=== PATIENT | male | born 1955 | race Caucasian/White ===

== ENCOUNTER → 2017-02-09 | Outpatient (CLI) | payer BC ==
[~2017-02-09] MED LIST: ATEN100T PO; COU1 PO; OXYC-481 PO; TRAM50TA2 PO; ZIAC10 PO
--- NOTE | 2017-02-09 10:02 | RADRPT ---
PROCEDURE: XR left knee. CLINICAL INDICATION: Knee pain. TECHNIQUE: AP weightbearing, lateral weightbearing and sunrise views are available for review. COMPARISON: 08/02/2016 FINDINGS: There is a total knee replacement. There is no evidence of loosening of the prosthesis. There is no evidence of hardware failure. The osseous structures are normal in mineralization, architecture and alignment No acute fracture or dislocation is seen.No osseous lesions are identified. The soft tiss ues are unremarkable . IMPRESSION: Unremarkable total knee replacement. RPTAT: HGDB .Angelo Valencia MD, MD Date Time Electronically viewed and signed by .Angelo Valencia MD, MD on 02/09/2017 10:02 .B/
== END | disposition home or self-care (01) ==
LOC: HKI 08:50
PROVIDERS: ATTEND Orthopaedic Surgery
DX: Z47.89 Encounter for other orthopedic aftercare (principal); Z96.652 Presence of left artificial knee joint; Z96.642 Presence of left artificial hip joint
CPT/HCPCS: 73562; G0463

== ENCOUNTER 2017-04-15 05:13 | Emergency (ER) | payer BC ==
[~2017-04-15] VITALS: Ht 177.8 cm; Wt 111.5 kg
[2017-04-15 05:19] VITALS: Ht 177.8 cm; Wt 111.5 kg
--- NOTE | 2017-04-15 07:13 | ERA ---
ER Documentation Chief Complaint Date/Time DATE: 04/15/17 TIME: 07:10 Chief Complaint prolong talking with people weird things, insomnia, poor judgement HPI Patient is a 62-year-old male who presents with gradual onset, constant, progressive hyperactivity for the last 2 months. According to his daughter, he has been sleeping less, speaking rapidly and grandiosely. He has been making impulsive decisions, and poor financial decisions. He and his daughter deny any history of prior psychiatric illness. The daughter states that the patient' s mother developed similar symptoms in her 70s, and was found to have a problem with blood flow in her brain. The patient denies drug use. He states that he drinks 2 rum and Cokes per night. He has been sleeping 4 hours a night, but not at all for the last 2 nights. He denies hallucinations, hearing voices. He denies suicidal or homicidal ideation. His daughter states that he has had labile affect and will start crying spontaneously. ROS All systems reviewed and are negative except as per history of present illness. Medications Home Meds Reported Medications Lisinopril* (Lisinopril*) 5 Mg Tablet, 5 MG PO DAILY, #30 TAB 04/15/17 Apixaban* (Eliquis*) 5 Mg Tablet, 5 MG PO BID, TAB 04/15/17 Bisoprolol-Hydrochlorothiazide (Ziac) 07/27.25 Tablet, 1 TAB PO DAILY, TAB 06/22/16 Atenolol* (Atenolol*) 100 Mg Tablet, 100 MG PO DAILY, #30 TAB 06/22/16 Discontinued Scripts Warfarin Sod (Coumadin) 1 Mg Tab, 1 MG PO DAILY for 90 Days, #90 TAB Prov:JOAN WASHBURN 06/22/16 Tramadol HCl (Tramadol HCl) 50 Mg Tablet, 50 MG PO Q6 for 14 Days, #60 TAB Prov:JOAN WASHBURN 06/22/16 Oxycodone Hcl* (IR) (Roxicodone*) 5 Mg Tab, 5 MG PO Q4H Y for PAIN LEVEL 1-3 for 14 Days, #60 TAB Prov:JOAN WASHBURN 06/22/16 Allergies Allergies: Coded Allergies: No Known Allergy (Verified , 04/15/17) PMhx/Soc Past medical history: DVT Past surgical history: Left knee replacement, left hip replacement Social history: Drinks alcohol, denies tobacco or illicit drugs. History of Surgery: Yes (Hip replacement 2010, shoulder sx 2005, L knee arthroscopy 2001, cataract) Anesthesia Reaction: No Hx Neurological Disorder: No Hx Respiratory Disorders: No Hx Cardiac Disorders: No Hx Psychiatric Problems: No Hx Miscellaneous Medical Probl: Yes (Blood cloths, pulmonary emboli, HTN) Hx Alcohol Use: Yes Hx Substance Use: No Hx Tobacco Use: No Smoking Status: Never smoker FmHx Family History: No coronary disease, No diabetes Physical Exam Vitals Vital Signs Date Time Temp Pulse Resp B/P Pulse Ox O2 Delivery O2 Flow Rate FiO2 04/15/17 11:28 61 176/96 100 Room Air 04/15/17 05:19 97.8 63 20 170/96 97 Physical Exam Const: Alert, no acute distress Head: Atraumatic Eyes: Normal Conjunctiva, no pallor, no icterus ENT: Normal External Ears, Nose and Mouth. Mucous membranes moist Neck: Full range of motion..~ No meningismus. No JVD Resp: Clear to auscultation bilaterally, no wheezes, no rales Cardio: Regular rate and rhythm, no murmurs Abd: Soft, non tender, non distended. Skin: No petechiae or rashes Back: No midline or flank tenderness Ext: No cyanosis, 2+ pitting edema to the left leg, 1+ pitting edema to the right leg, orange toenail croatian Neur: Awake and alert, cranial nerves II through XII intact bilaterally, strength and sensation full in 4 extremities, no asterixis, no tremor Psych: Rapid, pressured speech, labile affect Result Diagram: 04/15/17 0655 04/15/17 0655 Results 24 hrs Laboratory Tests Test 04/15/17 06:55 White Blood Count 5.210^3/ul Red Blood Count 4.5610^6/ul Hemoglobin 16.2g/dl Hematocrit 46.2% Mean Corpuscular Volume 101.3fl Mean Corpuscular Hemoglobin 35.5pg Mean Corpuscular Hemoglobin Concent 35.1g/dl Red Cell Distribution Width 12.9% Platelet Count 21885^3/UL Mean Platelet Volume 9.1fl Neutrophils % 65.3% Lymphocytes % 16.3% Monocytes % 13.4% Eosinophils % 3.6% Basophils % 1.0% Nucleated Red Blood Cells % 0.0/100WBC Neutrophils # 3.410^3/ul Lymphocytes # 0.910^3/ul Monocytes # 0.710^3/ul Eosinophils # 0.210^3/ul Basophils # 0.110^3/ul Nucleated Red Blood Cells # 0.010^3/ul Prothrombin Time 13.4Sec Prothrombin Time Ratio 1.0 INR International Normalized Ratio 1.02 Urine Color YELLOW Urine Clarity CLEAR Urine pH 5.0 Urine Specific [place] 1.017 Urine Ketones NEGATIVEmg/dL Urine Nitrite NEGATIVEmg/dL Urine Bilirubin NEGATIVEmg/dL Urine Urobilinogen 1+mg/dL Urine Leukocyte Esterase NEGATIVELeu/ul Urine Hemoglobin NEGATIVEmg/dL Urine Glucose NEGATIVEmg/dL Urine Total Protein NEGATIVEmg/dl Sodium Level 145mmol/L Potassium Level 4.1mmol/L Chloride Level 111mmol/L Carbon Dioxide Level 22mmol/L Anion Gap 16 Blood Urea Nitrogen 17mg/dl Creatinine 0.73mg/dl Glucose Level 106mg/dl Calcium Level 9.8mg/dl Total Bilirubin 0.5mg/dl Direct Bilirubin 0.00mg/dl Indirect Bilirubin 0.5mg/dl Aspartate Amino Transf (AST/SGOT) 66IU/L Alanine Aminotransferase (ALT/SGPT) 70IU/L Alkaline Phosphatase 88IU/L B-Type Natriuretic Peptide 123PG/ML Total Protein 7.3g/dl Albumin 4.6g/dl Globulin 2.70g/dl Albumin/Globulin Ratio 1.70 Thyroid Stimulating Hormone (TSH) 3.530MIU/L Salicylates Level < 1.0mg/dl Urine Opiates Screen Negative Acetaminophen Level < 10.0ug/ml Urine Barbiturates Negative Urine Amphetamines Screen Negative Urine Benzodiazepines Screen Negative Urine Cocaine Screen Negative Urine Cannabinoids Negative Ethyl Alcohol Level 40.0mg/dl Procedures/MDM MDM: Patient is a 62-year-old male brought to the ER by his daughter who reports that he has had 2 months of impulsive behavior, pressured speech, and limited sleep. His symptoms are consistent with maddison. His symptoms are having an impact on his finances and his daughter's concern for his well-being. The patient has no past psychiatric history. There is no evidence of an acute medical condition. The patient has no neurological symptoms or deficits on exam. He drinks moderate alcohol, but has no history or evidence of other ingestion. The patient has left greater than right lower extremity edema. He is taking Eliquis for prior DVT. He does not have calf tenderness. There is no evidence of hypoalbuminemia, CHF, or renal impairment. Patient was medically cleared for psychiatric evaluation. The tele-psychiatrist recommended a 5150 hold. PET team has been contacted. Departure Diagnosis: Primary Impression: Maddison Additional Impression: Peripheral edema Condition: Stable ASH GOLDBERG MD Apr 15, 2017 07:13
[2017-04-15 07:16] LABS: ADD SCAN DIFF NO
[2017-04-15 07:31] LABS: ADD UMIC NO; UR ASCORBIC ACID NEGATIVE (NEGATIVE); UR BILIRUBIN (Dip) NEGATIVE (NEGATIVE); UR BLOOD (Dip) NEGATIVE (NEGATIVE); UR CLARITY CLEAR (CLEAR); UR COLOR YELLOW (YELLOW); UR GLUCOSE (Dip) NEGATIVE (NEGATIVE); UR KETONES (Dip) NEGATIVE (NEGATIVE); UR LEUKOCYTE ESTERASE (Dip) NEGATIVE Leu/ul (NEGATIVE); UR NITRITE (Dip) NEGATIVE (NEGATIVE); UR SPECIFIC GRAVITY (Dip) 1.017 (1.003-1.030); UR TOTAL PROTEIN (Dip) NEGATIVE (NEGATIVE); UR UROBILINOGEN (Dip) 1+ mg/dL (NEGATIVE)
[2017-04-15 07:33] LABS: BASOPHIL # 0.1 10^3/ul (0.0-0.1); EOSINOPHILS # 0.2 10^3/ul (0.0-0.5); EOSINOPHILS % 3.6 % (0.0-7.0); HEMATOCRIT 46.2 % (42.0-52.0); HEMOGLOBIN 16.2 g/dl (14.0-18.0); LYMPHOCYTES # 0.9 10^3/ul (0.8-2.9); LYMPHOCYTES % 16.3 % (15.0-51.0); MEAN CORPUSCULAR HEMOGLOBIN 35.5 pg (29.0-33.0); MEAN CORPUSCULAR HGB CONC 35.1 g/dl (32.0-37.0); MEAN CORPUSCULAR VOLUME 101.3 fl (82.0-101.0); MEAN PLATELET VOLUME 9.1 fl (7.4-10.4); MONOCYTE # 0.7 10^3/ul (0.3-0.9); MONOCYTES % 13.4 % (0.0-11.0); NEUTROPHIL # 3.4 10^3/ul (1.6-7.5); NEUTROPHILS % 65.3 % (39.0-77.0); PLATELET COUNT 154 10^3/UL (140-415); RED BLOOD COUNT 4.56 10^6/ul (4.70-6.10); RED CELL DISTRIBUTION WIDTH 12.9 % (11.5-14.5); WHITE BLOOD COUNT 5.2 10^3/ul (4.8-10.8)
[2017-04-15 07:45] LABS: INR 1.02; PROTIME 13.4 Sec (12.2-14.2)
[2017-04-15 08:03] LABS: ALANINE AMINOTRANSFERASE 70 IU/L (13-69); ALBUMIN 4.6 g/dl (3.3-4.9); ALKALINE PHOSPHATASE 88 IU/L (42-121); ANION GAP 16 (8-16); ASPARTATE AMINO TRANSFERASE 66 IU/L (15-46); BARBITURATES Negative (NEGATIVE); BENZODIAZEPINES Negative (NEGATIVE); BILIRUBIN,INDIRECT 0.5 mg/dl (0-1.1); BILIRUBIN,TOTAL 0.5 mg/dl (0.2-1.3); BLOOD UREA NITROGEN 17 mg/dl (7-20); CALCIUM 9.8 mg/dl (8.4-10.2); CANNABINOIDS Negative (NEGATIVE); CARBON DIOXIDE 22 mmol/L (21-31); CHLORIDE 111 mmol/L (97-110); COCAINE Negative (NEGATIVE); CREATININE 0.73 mg/dl (0.61-1.24); GLUCOSE 106 mg/dl (70-220); OPIATES Negative (NEGATIVE); POTASSIUM 4.1 mmol/L (3.5-5.1); SODIUM 145 mmol/L (135-144); TOTAL PROTEIN 7.3 g/dl (6.1-8.1)
[2017-04-15 08:33] LABS: THYROID STIMULATING HORMONE 3.53 MIU/L (0.465-4.680)
[2017-04-15 09:04] LABS: ACETAMINOPHEN < 10.0 ug/ml (10.0-30.0); SALICYLATE < 1.0 mg/dl (5.0-30.0)
--- NOTE | 2017-04-15 09:47 | PSY ---
Date/Time of Note Date/Time of Note DATE: 04/15/17 TIME: 12:23 Psychiatric Subjective Eval Consent Pt consented to telemedicine: Yes Subjective Evaluation Patient location: emergency Chief Complaint: prolong talking with people weird things, insomnia, poor judgement History of present illness The patient is a 62 yo male with no psych hx who has been presenting with manic sxs, first onset, over past 3 months. Rapid speech, cannot stop speaking with anyone including strangers, giving phone numbers to random strangers, less sleep (2 or lesss hours per night), very impulsive and disorganized (wants to open tanning salon, left apt of 16 years, now living in [facility], wants to move to [facility]), painting toenails orange, pressured speech, much less sleep. flight of ideas, grandiose (constantly told MD about how well he is doing, mostly financial), his daughter told that ptp told her that he was speaking with Marcus, was goign to sell car to give money away to mosque. Hx also obtained from daughter at bedside Drinks etoh daily. Past Psych Hx: no past psych hx PMHx: previous blood clots in his lungs, htn Meds: elaquist, htn meds All: nkda Fam Hx: pt's mother had same first onsent manic sxs age 70. Report was low blood obey to brainstem. MSE: euphoric, very energetic, pressured speech, disoragnized, tangential and circumstantial, denies avh, very grandiose, no si/ih, poor judgment, poor insight 62 yo male with first onset manic and psychotic sxs, similar to mother. Also alcohol dependence. Making very poor and impulsive decisions. Psychotic. While his self care remains, his ability to function is almost negligible as he has not been able to maitain a stable, life, very impulsive and dangerous decisions. Gravely disabled. 515 psych admit -zyprexa 2.5mg bid -for moderate agitation zyprexa 5mg po -for severe agitation haldol 5mg IM, ativan 2mg IM, cogentin 1mg im -alcohol withdrawal precautions, clonazepam 0.5mg for SBP > 140, DBP > 90, HR > 100 -pt drinks daily so be very vigilant about monitoring for etoh w/d -daily thiamine 100mg, folate 1mg, mvi Allergies: Coded Allergies: No Known Allergy (Verified , 06/22/16) Psychiatric Objective Eval Mental Status Examination: Laboratory Results Laboratory Tests Test 04/15/17 06:55 White Blood Count 5.210^3/ul Red Blood Count 4.5610^6/ul Hemoglobin 16.2g/dl Hematocrit 46.2% Mean Corpuscular Volume 101.3fl Mean Corpuscular Hemoglobin 35.5pg Mean Corpuscular Hemoglobin Concent 35.1g/dl Red Cell Distribution Width 12.9% Platelet Count 59464^3/UL Mean Platelet Volume 9.1fl Neutrophils % 65.3% Lymphocytes % 16.3% Monocytes % 13.4% Eosinophils % 3.6% Basophils % 1.0% Nucleated Red Blood Cells % 0.0/100WBC Neutrophils # 3.410^3/ul Lymphocytes # 0.910^3/ul Monocytes # 0.710^3/ul Eosinophils # 0.210^3/ul Basophils # 0.110^3/ul Nucleated Red Blood Cells # 0.010^3/ul Prothrombin Time 13.4Sec Prothrombin Time Ratio 1.0 INR International Normalized Ratio 1.02 Urine Color YELLOW Urine Clarity CLEAR Urine pH 5.0 Urine Specific [place] 1.017 Urine Ketones NEGATIVEmg/dL Urine Nitrite NEGATIVEmg/dL Urine Bilirubin NEGATIVEmg/dL Urine Urobilinogen 1+mg/dL Urine Leukocyte Esterase NEGATIVELeu/ul Urine Hemoglobin NEGATIVEmg/dL Urine Glucose NEGATIVEmg/dL Urine Total Protein NEGATIVEmg/dl Sodium Level 145mmol/L Potassium Level 4.1mmol/L Chloride Level 111mmol/L Carbon Dioxide Level 22mmol/L Anion Gap 16 Blood Urea Nitrogen 17mg/dl Creatinine 0.73mg/dl Glucose Level 106mg/dl Calcium Level 9.8mg/dl Total Bilirubin 0.5mg/dl Direct Bilirubin 0.00mg/dl Indirect Bilirubin 0.5mg/dl Aspartate Amino Transf (AST/SGOT) 66IU/L Alanine Aminotransferase (ALT/SGPT) 70IU/L Alkaline Phosphatase 88IU/L B-Type Natriuretic Peptide 123PG/ML Total Protein 7.3g/dl Albumin 4.6g/dl Globulin 2.70g/dl Albumin/Globulin Ratio 1.70 Thyroid Stimulating Hormone (TSH) 3.530MIU/L Salicylates Level < 1.0mg/dl Urine Opiates Screen Negative Acetaminophen Level < 10.0ug/ml Urine Barbiturates Negative Urine Amphetamines Screen Negative Urine Benzodiazepines Screen Negative Urine Cocaine Screen Negative Urine Cannabinoids Negative Ethyl Alcohol Level 40.0mg/dl KISHA PAULINO Apr 15, 2017 09:47
[2017-04-15] MEDS ORDERED: APIX5TAB PO (10:48)
[2017-04-15] MEDS ORDERED: LISI-313 PO (10:49)
[2017-04-15 17:25] VITALS: BP 158/98; PULSE 100; RESP 22
== END 2017-04-15 17:41 ==
LOC: E/R 05:13
DX: F30.9 Manic episode, unspecified (principal); R60.0 Localized edema; I10 Essential (primary) hypertension; Z96.642 Presence of left artificial hip joint; Z96.652 Presence of left artificial knee joint
CPT/HCPCS: 36415; 80053; 80306; 80307; 81003; 83880; 84443; 85025; 85610